=== PATIENT | male | born 1935 | race Caucasian/White ===

== ENCOUNTER → 2016-06-07 | Outpatient (CLI) | payer MEDICARE, BC ==
[~2016-06-07] MED LIST: ASPIRIN81 M1 PO; BENADRYL25 MG PO; FLOMAX0.4 M1 PO; LORTAB 7.5-5001 TAB PO; NORVASC10 MG; PRILOSEC20 M1 PO; PRILOSEC20 MG; PRILOSEC20 MG PO; TOPROL XL; TRIAMTERENE-HC1 EAC1 PO; TRICOR145 MG PO
--- NOTE | ~2016-06-07 | US128 ---
[id number] [facility]. [facility] [address] [place], [place] [address] [id number] O MR#: [id number] Acc #: [id number] NAME: BASIL GARZA : 1935 SEX: M STUDY DATE/TIME: 06/07/2016 13:18 UNIT: CGUS ROOM: STUDY DESCRIPTION: Thyroid Attending Physician: Kate Gutierrez M.D. Referring Physician: Kate Gutierrez M.D. Ordering Physician: Kate Gutierrez M.D. Primary Care Physician: Kate Gutierrez M.D. MEDICAL IMAGING REPORT This report is preliminary unless electronic signature is present EXAM Thyroid ultrasound, date of study 06/07/2016 HISTORY Routine followup for known thyroid nodule, no new abnormality. FINDINGS There are multiple subcentimeter nodules in the right lobe of the gland. On the left, there is a solid lower-pole nodule measured by the technologist on the current exam at 2.7 x 2.6 x 2.4 cm compared to 2.6 x 2.5 x 3.4 cm, previously. It is poorly seen but, grossly, would be unchanged based on those measurements. IMPRESSION Left lower-pole nodule appears grossly unchanged based on measurements provided. No new abnormality is seen. Dictated by... Zachariah Hanna M.D. THIS IS AN ELECTRONICALLY VERIFIED REPORT Zachariah Hanna M.D. at 06/14/2016 5:04 PM TEV/kenn TD: 06/10/2016 20:17 JOB #: [id number] MEDICAL IMAGING REPORT Page 1 of 1 COPY
== END | disposition home or self-care (01) ==
LOC: CGUS 12:39
DX: E04.1 Nontoxic single thyroid nodule (principal)
CPT/HCPCS: 76536

== ENCOUNTER → 2016-06-12 | Outpatient (CLI) | payer MEDICARE, BC ==
[2016-06-12 11:33] LABS: CREATININE SERUM 1.8 mg/dL (0.6-1.4); GLOM FILT RATE Estimated 34.8 mL/min (>60)
== END | disposition home or self-care (01) ==
LOC: CLAB 10:03
PROVIDERS: Surgery Vascular Surgery
DX: I71.4 Abdominal aortic aneurysm, without rupture (principal)
CPT/HCPCS: 36415; 82565; 84520

== ENCOUNTER → 2016-06-18 | Outpatient (CLI) | payer MEDICARE, BC ==
--- NOTE | ~2016-06-18 | CT4 ---
[facility] RADIOLOGY TEXT RESULTS PATIENT: BASIL GARZA LOCATION: [place] : 35 UNIT #: [id number] AGE: [address]: CALRK BRENNER APRN SEX: M ORDER DR: [id number] [facility] [address] [place], [place] [address] [id number] O MR#: [id number] Acc #: [id number] NAME: BASIL GARZA : 1935 SEX: M STUDY DATE/TIME: 06/18/2016 12:11 UNIT: CGUS ROOM: STUDY DESCRIPTION: CT Abd and Pelv Wo Cont Attending Physician: Clark Brenner M.D. Referring Physician: Clark Brenner M.D. Ordering Physician: Clark Brenner M.D. Primary Care Physician: Kate Gutierrez M.D. MEDICAL IMAGING REPORT This report is preliminary unless electronic signature is present EXAM Abdomen and pelvis CT without contrast. DATE OF EXAM 06/18/2016 HISTORY Abdominal aortic aneurysm which is asymptomatic. Evaluate for growth over time. COMPARISON Comparison scan 03/01/2015. TECHNIQUE Axial images were obtained without contrast. NOTE: This CT exam was performed with one or more of the following radiation dose reduction techniques: automatic exposure control, adjustment of mA and/or kV according to patient size, and iterative reconstruction. 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 The maximum diameter of the residual aneurysm sac is 3 x 4 cm. This compares with 3.8 x 4.6 cm on the previous exam. No fluid collections are seen around the aorta. Extravascular structures in the abdomen and pelvis are unchanged from the previous scan. No acute or inflammatory changes are noted. Postoperative changes are noted in the cecum. Diverticulosis is again seen. IMPRESSION Appropriate decrease in diameter of the residual aneurysm sac as described above. No postoperative complications noted. Satisfactory postoperative examination. [facility] RADIOLOGY TEXT RESULTS PATIENT: BASIL GARZA LOCATION: [facility] : 35 UNIT #: [id number] AGE: [address]: CLARK BRENNER APRN SEX: M ORDER DR: Dictated by... Hector Strong M.D. THIS IS AN ELECTRONICALLY VERIFIED REPORT Hector Strong M.D. at 06/19/2016 8:03 AM IGNACIO/james TD: 06/18/2016 19:03 JOB #: [id number] MEDICAL IMAGING REPORT Page 1 of 1 COPY
--- NOTE | ~2016-06-18 | US10 ---
[id number] [facility]. [facility] [address] [place], [place] [address] [id number] O MR#: [id number] Acc #: [id number] NAME: BASIL GARZA : 1935 SEX: M STUDY DATE/TIME: 06/18/2016 12:14 UNIT: CGUS ROOM: STUDY DESCRIPTION: US Aorta Complete Attending Physician: Thu Brenner M.D. Referring Physician: Thu Brenner M.D. Ordering Physician: Thu Brenner M.D. Primary Care Physician: Kate Gutierrez M.D. MEDICAL IMAGING REPORT This report is preliminary unless electronic signature is present EXAM Abdominal aortic ultrasound, 06/18/2016 HISTORY Abdominal aortic aneurysm. FINDINGS Ultrasound examination of the abdominal aorta demonstrates an infrarenal abdominal aortic aneurysm measuring approximately 2.7 cm x 3.6 cm, very similar to measurements obtained on CT today. The upper abdominal aorta measures 2.3 cm in diameter and the distal abdominal aorta measures 2.2 cm in diameter. The left common iliac artery measures 1.1 cm and the right common iliac artery measures 0.9 cm in AP dimension. IMPRESSION 1. Small infrarenal abdominal aortic aneurysm measuring close to 2.7 cm x 3.6 cm corresponds to similar measurements on CT earlier today. The CT also demonstrated bifurcated endovascular aortobiiliac stent graft, not well visualized on ultrasound. 2. The proximal abdominal aorta and the most distal abdominal aorta are normal in caliber. 3. The common iliac arteries measure 1.1 cm in diameter on the left to 1.0 cm on the right. Dictated by... Kalyan Urban M.D. THIS IS AN ELECTRONICALLY VERIFIED REPORT Kalyan Urban M.D. at 06/19/2016 10:56 PM LUAREEN/douglas TD: 06/19/2016 00:26 JOB #: [id number] MEDICAL IMAGING REPORT Page 1 of 1 COPY
== END | disposition home or self-care (01) ==
LOC: CGUS 10:41
DX: I71.4 Abdominal aortic aneurysm, without rupture (principal)
CPT/HCPCS: 74176; 76770